=== PATIENT | male | born 1980 | race Caucasian/White ===

== ENCOUNTER 2018-05-08 21:36 | Emergency (ER) | payer SELFPAY ==
[2018-05-08] MEDS ORDERED: FLUORESCEIN SODIUM 1 MG STRIP OP ONE ×2 (21:58→22:01)
[2018-05-08] MEDS ORDERED: PROPARACAINE 0.5% 15 ML OPHT DROP ONE (21:58)
[2018-05-08] MEDS ORDERED: ERYTHROMYCIN 0.5% 1 GM OPHT.OINT ONE (21:59)
[2018-05-08] MEDS ORDERED: PROPARACAINE 0.5% 15 ML OPHT DROP OP ONE (22:02)
[2018-05-08] MEDS ORDERED: ERYTHROMYCIN 0.5% 1 GM OPHT.OINT EACHEYE ONE (22:02)
--- NOTE | 2018-05-08 22:15 | EDPHY ---
H & P Stated Complaint: Debris in R eye from cleaning gutters, [place], tried to clean it Time Seen by Provider: 05/08/18 21:50 HPI/ROS: Chief Complaint: Right eye pain HPI: 38-year-old male got debris in his right eye wall cleaning out gutters at 2:00 a.m. This afternoon. He has had pain and the sensation of foreign body in his eye since then. He has irrigated out. He has been rubbing it. So feels are might be debris. His has some moderate pain with a mild headache. He mild blurry vision. Does not wear glasses or contacts. No prior eye injuries. ROS: 10 systems were reviewed and were negative except those elements noted in the HPI. PMH: Denies Social History: No smoking Family History: non-contributory Physical Exam: General: Awake, alert, no acute distress Eye Exam Visual Acuity: Intact EOM: Intact OU Visual Riddle: Intact OU Pupil: Equal, round and reactive to light and accomodation OU External: Lids, lashes and margins normal lids everted, no foreign body noted Fundoscopy; Normal OU Slit Lamp; moderate conjunctival injection with limbic sparing Iris normal , there is moderate corneal stippling with noted abrasion in the 12 o'clock position, Anterior chambers clear without cells or flare, no hyphema, normal angles Fluorosceine exam: Significant for seen uptake in the 11:00 to 1:00 position Tonometry: Not performed - Personal History Current Tetanus Diphtheria and Acellular Pertussis (TDAP): No - Medical/Surgical History Hx Asthma: No Hx Chronic Respiratory Disease: No Hx Diabetes: No Hx Cardiac Disease: No Hx Renal Disease: No Hx Cirrhosis: No Hx Alcoholism: No Hx HIV/AIDS: No Hx Splenectomy or Spleen Trauma: No Other PMH: Denies - Social History Smoking Status: Heavy smoker Constitutional: Initial Vital Signs Temperature (C) 36.7 C 05/08/18 21:41 Heart Rate 97 05/08/18 21:41 Respiratory Rate 18 05/08/18 21:41 Blood Pressure 136/90 H 05/08/18 21:41 O2 Sat (%) 97 05/08/18 21:41 O2 Delivery Mode Room Air Allergies/Adverse Reactions: No Known Allergies Allergy (Unverified 05/08/18 21:43) Home Medications: Medication Instructions Recorded NK [No Known Home Meds] 05/08/18 Medical Decision Making ED Course/Re-evaluation: 38-year-old male with large corneal abrasion. No evidence of perforation or acute traumatic iritis. He has had relief with proparacaine. Will send him home with a dilute solution proparacaine and erythromycin eye ointment. He will follow up with Ophthalmology if symptoms are not improved in 2 days. Return for any worsening. - Data Points Medications Given: Discontinued Medications Erythromycin (Erythromycin 0.5%) 1 james EACHEYE ONCE ONE Stop: 05/08/18 22:03 Last Admin: 05/08/18 22:08 Dose: Not Given Fluorescein Sodium (Bioglo) 1 mg OP EDNOW ONE Stop: 05/08/18 22:02 Last Admin: 05/08/18 22:08 Dose: Not Given Proparacaine HCl (Alcaine 0.5%) 1 drops OP EDNOW ONE Stop: 05/08/18 22:03 Last Admin: 05/08/18 22:08 Dose: Not Given Departure - Departure Disposition: Home, Routine, Self-Care Clinical Impression: Corneal abrasion Condition: Good Instructions: Corneal Abrasion (ED), Erythromycin (Into the eye) Additional Instructions: Do not touch your eye. Apply the erythromycin eye ointment every 4 hr while awake for the next 3 days. You may apply 1-2 drops of the dilute proparacaine solution every 30 min as needed for pain for the next 3 days only. May take ibuprofen and acetaminophen as needed for pain. Follow up with physician/allergy/immunology in 2-3 days if symptoms are not improving. Return to the emergency department for increasing pain, worsening vision, fevers , chills, discharge from her eye, or any other concerns. Referrals: Doug Chavez MD [Medical Doctor] - As per Instructions
[2018-05-08 22:35] VITALS: BP 127/65
== END 2018-05-08 22:35 | disposition home or self-care (01) ==
DX: S05.01XA Injury of conjunctiva and corneal abrasion without foreign body, right eye, initial encounter (principal)